=== PATIENT | female | born 1995 | race Caucasian/White ===

== ENCOUNTER 2017-04-30 04:59 | Emergency (ER) | payer BC ==
[~2017-04-30] VITALS: Ht 152.4 cm; Wt 53.1 kg
--- NOTE | 2017-04-30 05:25 | PHYS DOC ---
Past Medical History Past Medical History: Anxiety, Asthma Past Surgical History: Tonsillectomy, Other Additional Past Surgical Histo: 4 teeth extracted Alcohol Use: None Drug Use: None Adult General Chief Complaint Chief Complaint: ABDOMINAL PAIN IN HPI HPI Patient is a 21 year old G2, P1 female approximately 10 weeks gestation a presents with epigastric pain waking her from sleep approximately 3 hours prior to ED arrival. Epigastric pain radiates to right shoulder blade. Pain is described as mild to moderate waxes and wanes. Patient currently denies epigastric pain but does report pain in back. Patient took a Tums but reports vomiting it afterwards. Denies bloody stools dark tarry stools. No urinary frequency urgency. Patient has had morning sickness and but denies other complications. Review of Systems Review of Systems Review symptoms as per history of present illness. All other review symptoms are negative. Current Medications Current Medications Current Medications Medications (Trade) Dose Ordered Sig/Jeremy Start Time Stop Time Status Last Admin Dose Admin Multi-Ingredient Mouthwash/Gargle (Gi Cocktail Single Dose) 15 ml 1X ONCE 04/30/17 05:30 04/30/17 05:31 DC Allergies Allergies Allergies Coded Allergies Type Severity Reaction Last Updated Verified No Known Drug Allergies 09/23/14 No Physical Exam Physical Exam Constitutional: Well developed, well nourished, no acute distress, non-toxic appearance. [] HENT: Normocephalic, atraumatic, bilateral external ears normal, oropharynx moist, no oral exudates, nose normal. [] Eyes: PERRLA, EOMI, conjunctiva normal, no discharge. [] Neck: Normal range of motion, no tenderness, supple, no stridor. [] Cardiovascular:Heart rate regular rhythm, no murmur [] Lungs & Thorax: Bilateral breath sounds clear to auscultation [] Abdomen: Bowel sounds normal, soft, EPIGASTRIC pain, tenderness, no rebound rigidity or guarding. [] Skin: Warm, dry, no erythema, no rash. [] Back: No tenderness, no CVA tenderness. [] Extremities: No tenderness, no cyanosis, no clubbing, ROM intact, no edema. [] Neurologic: Alert and oriented X 3, normal motor function, normal sensory function, no focal deficits noted. [] Psychologic: Affect normal, judgement normal, mood normal. [] Current Patient Data Vital Signs Vital Signs Date Time Temp Pulse Resp B/P (MAP) Pulse Ox O2 Delivery O2 Flow Rate FiO2 04/30/17 05:30 98.7 92 16 131/83 (99) 98 Room Air 98.7 Lab Values Laboratory Tests Test 04/30/17 04:38 POC Urine HCG, Qualitative Hcg positive (Negative) EKG EKG [] Radiology/Procedures Radiology/Procedures [] Course & Med Decision Making Course & Med Decision Making Pertinent Labs and Imaging studies reviewed. (See chart for details) [Epigastric pain radiating to back nausea and vomiting. Workup in progress. Care endorsed to oncoming ERP at 06:00] Dragon Disclaimer Dragon Disclaimer This electronic medical record was generated, in whole or in part, using a voice recognition dictation system. Departure Departure Referrals: NO PCP (PCP) TATMU CURTIS DO Apr 30, 2017 05:25
[2017-04-30] MEDS: LIDO:MAALOX:DONNATAL 1:1:1 15 ML SINGLE DOSE SWSW ONE ×2 (05:30→05:56)
[2017-04-30 05:56] LABS: CREATININE 0.6 mg/dL (0.6-1.0); GFR 126.2; POTASSIUM 3.5 mmol/L (3.5-5.1)
[2017-04-30 05:57] LABS: BASO % 0 % (0-3); EOS % 0 % (0-3); HEMATOCRIT 35.6 % (36.0-47.0); HEMOGLOBIN 12.5 g/dL (12.0-15.5); LYMPH # 1.1 x10^3/uL (1.0-4.8); LYMPH % 9 % (24-48); MEAN CORPUSCULAR HEMOGLOBIN 31 pg (25-35); MEAN CORPUSCULAR HGB CONC 35 g/dL (31-37); MEAN CORPUSCULAR VOLUME 89 fL (79-100); MONO % 3 % (0-9); NEUT % 88 % (31-73); PLATELET COUNT 222 x10^3/uL (140-400); RED BLOOD COUNT 4.02 x10^6/uL (3.50-5.40); RED CELL DISTRIBUTION WIDTH 13.5 % (11.5-14.5); WHITE BLOOD COUNT 12.3 x10^3/uL (4.0-11.0)
[2017-04-30 05:59] LABS: ALBUMIN 3.5 g/dL (3.4-5.0); ALBUMIN/GLOBULIN RATIO 0.9 (1.0-1.7); TOTAL BILIRUBIN 0.3 mg/dL (0.2-1.0); TOTAL PROTEIN 7.2 g/dL (6.4-8.2)
[2017-04-30 06:30] LABS: BILIRUBIN,URINE NEGATIVE (NEG); GLUCOSE,URINE NEGATIVE (NEG); NITRITE,URINE NEGATIVE (NEG); PH,URINE 6.5; PROTEIN,URINE NEGATIVE (NEG-TRACE)
[2017-04-30] MEDS ORDERED: MAG HYDROX/ALUMINUM HYD/SIMETH 30 ML ORAL.SUSP PO ONE (06:30)
[2017-04-30] MEDS ORDERED: LIDOCAINE 2% VISCOUS 15 ML SOLUTION. SWSW ONE (06:30)
[2017-04-30 06:43] LABS: BACTERIA,URINE FEW /HPF (0-FEW); RBC,URINE 0 /HPF (0-2); SQUAMOUS EPITHELIAL CELL,UR MOD /LPF
--- NOTE | 2017-04-30 07:17 | RAD ---
Right upper quadrant abdominal ultrasound, 04/30/2017: History: Right upper quadrant pain The gallbladder is at the upper limits of normal in size. It contains echogenic material without definite posterior acoustic shadowing. The appearance is that of sludge, although tiny calculi within the sludge cannot be entirely excluded. The gallbladder murillo are not thickened. The common hepatic duct is of normal caliber. There is no evidence of a hepatic mass. There is limited visualization of the pancreatic body which is unremarkable. The visualized portions of the right kidney show no abnormality. IMPRESSION: Mildly distended gallbladder containing sludge.
[2017-04-30 07:43] LABS: PLT ESTIMATE ADEQUATE (ADEQUATE)
[2017-04-30] MEDS ORDERED: NITR100C62 PO (07:44)
[2017-04-30 08:00] VITALS: BP 117/66
== END 2017-04-30 08:06 | disposition home or self-care (01) ==
LOC: ER 04:59
DX: O23.41 Unspecified infection of urinary tract in pregnancy, first trimester (principal); O99.341 Other mental disorders complicating pregnancy, first trimester; F41.9 Anxiety disorder, unspecified; O99.511 Diseases of the respiratory system complicating pregnancy, first trimester; J45.909 Unspecified asthma, uncomplicated; Z3A.10 10 weeks gestation of pregnancy
CPT/HCPCS: 36415; 76705; 80053; 81001; 81025; 83690; 84702; 85007; 85025; 87086; 99285-25